=== PATIENT | female | born 1990 | race Caucasian/White ===

== ENCOUNTER 2018-08-03 16:41 | Emergency (ER) | payer OTHER, SELFPAY ==
--- NOTE | 2018-08-03 18:19 | EDPHYS ---
Physician Documentation [facility] Name: Ena Goyal Age: 28 yrs Sex: Female : 1990 Arrival Date: 08/03/2018 Time: 16:49 Bed 10 Private MD: None, None ED Physician Gilberto Webber HPI: 08/03 17:08 This 28 yrs old Female presents to ER via Ambulatory with complaints of Flu jmm Symptoms. 17:08 The patient or guardian reports cough, described as mild. Onset: The symptoms/episode jmm began/occurred gradually, 5 day(s) ago. Modifying factors: The symptoms are alleviated by nothing. the symptoms are aggravated by nothing. Associated signs and symptoms: Pertinent positives: fever, sore throat. This is a 28 year old female with no chronic medical conditions that presents to the ED with cough, congestion, sore throat and fever. Daughter has similar symptoms. . 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 - Social history:: Smoking status: Patient uses tobacco products, denies chronic smoking, but will smoke occasionally. - Ebola Screening: : No symptoms or risks identified at this time. ROS: 17:08 Eyes: Negative for injury, pain, redness, and discharge. jmm 17:08 Neck: Negative for injury, pain, and swelling, Cardiovascular: Negative for chest pain, palpitations, and edema. 17:08 Back: Negative for injury and pain, MS/Extremity: Negative for injury and deformity, Skin: Negative for injury, rash, and discoloration, Neuro: Negative for headache, weakness, numbness, tingling, and seizure. 17:08 Constitutional: Positive for fever. 17:08 ENT: Positive for sinus congestion, sore throat. 17:08 Respiratory: Positive for cough. 17:08 All other systems are negative. Exam: 17:08 Head/Face: atraumatic. Eyes: EOMI, no conjunctival erythema appreciated jmm 17:08 Neck: Trachea midline, Supple Chest/axilla: Normal chest wall appearance and motion. 17:08 Abdomen/GI: Non distended, soft Back: Normal ROM Skin: General appearance color normal MS/ Extremity: Moves all extremities, no obvious deformities appreciated, no edema noted to the lower extremities Neuro: Awake and alert, normal gait Psych: Behavior is normal, Mood is normal, Patient is cooperative and pleasant 17:08 Constitutional: The patient appears in no acute distress, alert, awake. 17:08 ENT: TM's: are normal, Posterior pharynx: swelling, that is moderate, vesicles. 17:08 Cardiovascular: Rate: normal, Rhythm: regular. 17:08 Respiratory: the patient does not display signs of respiratory distress, Respirations: normal, Breath sounds: are clear throughout. Vital Signs: 16:57 BP 118 / 74; Pulse 102; Resp 18; Temp 98.5; Pulse Ox 98% ; Weight 68.04 kg; Height 5 sv ft. 2 in. (157.48 cm); Pain 2/10; 16:57 Body Mass Index 27.44 (68.04 kg, 157.48 cm) sv MDM: 17:08 Data reviewed: vital signs, nurses notes. [facility] 17:32 Patient medically screened. [facility] 18:18 Data reviewed: lab test result(s). Counseling: I had a detailed discussion with the [facility] patient and/or guardian regarding: the historical points, exam findings, and any diagnostic results supporting the discharge/admit diagnosis, lab results, radiology results, to return to the emergency department if symptoms worsen or persist or if there are any questions or concerns that arise at home. 18:18 ED course: Patient is alert and non toxic in appearance in the ED. Symptoms appear most [facility] likely viral. Patient advised to follow up with PCP or return to the ED if symptoms worsen. patient understood and agree with the plan of care. . 08/03 17:07 Order name: Influenza Screen (a \T\ B) [facility] 08/03 17:07 Order name: Strep [facility] 08/03 18:05 Order name: Group A Streptococcus Rapid Sc; Complete Time: 18:18 EDMS 08/03 18:07 Order name: Influenza Screen (A ; Complete Time: 18:18 EDMS Administered Medications: No medications were administered Disposition: 08/03/18 18:19 Discharged to Home. Impression: Acute pharyngitis, Acute upper respiratory infection, unspecified. - Condition is Stable. - Discharge Instructions: Pharyngitis, Upper Respiratory Infection, Adult. - Prescriptions for promethazine- DM - take 5 milliliter by ORAL route every 4-6 hours; 120 milliliter. - Medication Reconciliation Form, Thank You Letter, Antibiotic Education, Prescription Opioid Use form. - Follow up: Private Physician; When: 2 - 3 days; Reason: Recheck today's complaints, Continuance of care, Re-evaluation by your physician. Signatures: Dispatcher [employer] Izabel Bermudez RN RN sv Mickail, Joel, PA PA jmm Habalo, Winsy Corrections: (The following items were deleted from the chart) 19:07 18:19 08/03/2018 18:19 Discharged to Home. Impression: Acute pharyngitis; Acute upper wh respiratory infection, unspecified. Condition is Stable. Forms are Medication Reconciliation Form, Thank You Letter, Antibiotic Education, Prescription Opioid Use. Follow up: Private Physician; When: 2 - 3 days; Reason: Recheck today's complaints, Continuance of care, Re-evaluation by your physician. elizabeth
--- NOTE | 2018-08-03 18:19 | ER ---
Nurse's Notes [facility] Name: Ena Goyal Age: 28 yrs Sex: Female : 1990 Arrival Date: 08/03/2018 Time: 16:49 Bed 10 Private MD: None, None Diagnosis: Acute pharyngitis;Acute upper respiratory infection, unspecified Presentation: 08/03 16:52 Presenting complaint: Patient states: coughing and sneezing started . sv Transition of care: patient was not received from another setting of care. Onset of symptoms was July 30, 2018. Care prior to arrival: None. 16:52 Method Of Arrival: Ambulatory sv 16:52 Acuity: KAJAL 4 sv 17:46 Risk Assessment: Do you want to hurt yourself or someone else? Patient reports no mg2 desire to harm self or others. Initial Sepsis Screen: Does the patient meet any 2 criteria? No. Patient's initial sepsis screen is negative. Does the patient have a suspected source of infection? No. Patient's initial sepsis screen is negative. Triage Assessment: 16:52 General: Appears in no apparent distress. uncomfortable, Behavior is calm, cooperative, sv appropriate for age. Pain: Denies pain. EENT: Reports sneezing. Neuro: Level of Consciousness is awake, alert, obeys commands, Oriented to person, place, time, situation, Moves all extremities. Full function Gait is steady. Respiratory: Reports cough that is Respiratory effort is even, unlabored, Respiratory pattern is regular, symmetrical. 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 - Social history:: Smoking status: Patient uses tobacco products, denies chronic smoking, but will smoke occasionally. - Ebola Screening: : No symptoms or risks identified at this time. Screenin:45 Abuse screen: Denies threats or abuse. Nutritional screening: No deficits noted. mg2 Tuberculosis screening: No symptoms or risk factors identified. Fall Risk None identified. Assessment: 17:45 Reassessment: No changes from previously documented assessment. mg2 Vital Signs: 16:57 BP 118 / 74; Pulse 102; Resp 18; Temp 98.5; Pulse Ox 98% ; Weight 68.04 kg; Height 5 sv ft. 2 in. (157.48 cm); Pain 2/10; 16:57 Body Mass Index 27.44 (68.04 kg, 157.48 cm) ED Course: 16:49 Patient arrived in ED. mr 16:50 None, None is Private Physician. mr 16:56 Triage completed. 16:57 Arm band placed on. 17:00 Radha Morales, RN is Primary Nurse. 17:00 Scotty Camilo PA is PHCP. [facility] 17:01 Gilberto Webber MD is Attending Physician. [facility] 17:45 No provider procedures requiring assistance completed. Patient did not have IV access mg2 during this emergency room visit. 17:46 Patient has correct armband on for positive identification. mg2 Administered Medications: No medications were administered Outcome: 18:19 Discharge ordered by MD. [facility] 19:06 Discharged to home ambulatory. 19:06 Condition: good 19:06 Discharge instructions given to patient, Instructed on discharge instructions, follow up and referral plans. medication usage, POC URTI Demonstrated understanding of instructions, follow-up care, medications, POC Prescriptions given X 1. 19:07 Patient left the ED. Signatures: Izabel Taylor RN RN Scotty Camilo PA PA jmm Rivera, Mary mr Radha Morales, RN NORA Nkechi Claros Joe Stockton RN RN mg2
== END 2018-08-03 19:07 | disposition home or self-care (01) ==
LOC: ER 16:41
DX: J02.9 Acute pharyngitis, unspecified (principal); J06.9 Acute upper respiratory infection, unspecified; Z72.0 Tobacco use
CPT/HCPCS: 87070; 87081; 87804; 99282

== ENCOUNTER 2018-12-04 15:11 | Emergency (ER) | payer SELFPAY ==
[2018-12-04] MEDS ORDERED: KETOROLAC 30 MG/ML INJ ONE (17:17)
--- NOTE | 2018-12-04 17:22 | ER ---
Nurse's Notes [facility] Name: Ena Goyal Age: 28 yrs Sex: Female : 1990 Arrival Date: 12/04/2018 Time: 15:14 Bed 12 Private MD: Diagnosis: Low back pain Presentation: 12/04 15:24 Presenting complaint: Patient states: hx of back pain, this episode started yesterday, iw c/o left low back pain. Transition of care: patient was not received from another setting of care. Onset of symptoms was December 03, 2018. Risk Assessment: Do you want to hurt yourself or someone else? Patient reports no desire to harm self or others. Initial Sepsis Screen: Does the patient meet any 2 criteria? No. Patient's initial sepsis screen is negative. Does the patient have a suspected source of infection? No. Patient's initial sepsis screen is negative. Care prior to arrival: None. 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 - Social history:: Smoking status: Patient uses tobacco products, smokes one pack cigarettes per day. - Ebola Screening: : Patient negative for fever greater than or equal to 101.5 degrees Fahrenheit, and additional compatible Ebola Virus Disease symptoms Patient denies exposure to infectious person Patient denies travel to an Ebola-affected area in the 21 days before illness onset No symptoms or risks identified at this time. Screenin:03 Abuse screen: Denies threats or abuse. Denies injuries from another. Nutritional rv screening: No deficits noted. Tuberculosis screening: No symptoms or risk factors identified. Fall Risk None identified. Assessment: 16:02 General: Appears in no apparent distress. comfortable, Behavior is calm, cooperative. rv Pain: Complains of pain in back. Neuro: Level of Consciousness is awake, alert, obeys commands, Oriented to person, place, time, situation. Cardiovascular: Capillary refill < 3 seconds. Respiratory: Airway is patent. GI: No signs and/or symptoms were reported involving the gastrointestinal system. : No signs and/or symptoms were reported regarding the genitourinary system. EENT: No signs and/or symptoms were reported regarding the EENT system. Derm: Skin is intact. Musculoskeletal: Reports pain in back. Vital Signs: 15:25 BP 129 / 84; Pulse 99; Resp 16; Temp 98.9; Pulse Ox 100% on R/A; Weight 68.04 kg; iw Height 5 ft. 2 in. (157.48 cm); Pain 4/10; 17:33 BP 125 / 86 RA; Pulse 88; Resp 18 S; Pulse Ox 99% on R/A; rv 15:25 Body Mass Index 27.44 (68.04 kg, 157.48 cm) iw ED Course: 15:14 Patient arrived in ED. as 15:25 Triage completed. iw 15:25 Arm band placed on. iw 15:56 Malaika Haynes FNP-C is [facility]. kb 15:56 Arnie Rg MD is Attending Physician. kb 16:03 Patient has correct armband on for positive identification. Bed in low position. Call rv light in reach. Side rails up X 1. Pulse ox on. NIBP on. 17:34 No provider procedures requiring assistance completed. Patient did not have IV access rv during this emergency room visit. Administered Medications: 17:11 Drug: TORadol 60 mg Route: IM; Site: right deltoid; rv 17:35 Follow up: Response: Pain is decreased rv Outcome: 17:21 Discharge ordered by MD. kb 17:34 Discharged to home ambulatory. rv 17:34 Condition: good 17:34 Discharge instructions given to patient, Instructed on discharge instructions, follow up and referral plans. medication usage, Demonstrated understanding of instructions, follow-up care, medications, Prescriptions given X 2. 17:34 Patient left the ED. rv Signatures: Maliaka Haynes FNP-C FNP-Ckb Martinez, Amelia as Williams, Irene, NORA RN iw Jasbir Barron RN RN rv
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
[2018-12-04 17:40] LABS: Urine Blood NEGATIVE (NEG); Urine Glucose NEGATIVE (NEG); Urine Protein NEGATIVE (NEG); Urine Specific Gravity 1.025 (1.005-1.030); Urine pH 5.5 (5.0-7.0)
== END 2018-12-04 17:34 | disposition home or self-care (01) ==
LOC: ER 15:11
DX: M54.5 Low back pain (principal); F17.210 Nicotine dependence, cigarettes, uncomplicated
CPT/HCPCS: 81003; 81025; 96372; 99283